=== PATIENT | female | born 1995 | race Caucasian/White ===

== ENCOUNTER 2020-11-06 15:03 | Emergency (ER) | payer SELFPAY ==
--- NOTE | 2020-11-06 15:23 | NUR ---
First contact with pt. Pt reports she is A2, and is approximately 11weeks . Reports she began having low abd cramps x4 days ago. Pt reports "I passed the baby 30 minutes ago." Pt denies cramping currently, denies dysuria. Pt placed in gown, positioned for comfort in bed, all safety measures observed.
[2020-11-06] MEDS ORDERED: PREN1TAB98 PO (15:25)
--- NOTE | 2020-11-06 15:32 | NUR ---
Continuous oxygen and BP Monitors applied, all safety measures observed, pt declines warm blanket offered.
[2020-11-06 15:48] LABS: BASOPHILS % (AUTO) 0 % (0-1); EOSINOPHILS % (AUTO) 1 % (1-7); LYMPHOCYTES % (AUTO) 9 % (22-44); MEAN CORPUSCULAR HEMOGLOBIN 31.6 pg (27.0-34.8); MEAN CORPUSCULAR HGB CONC 34.2 g/dL (32.4-35.8); MEAN PLATELET VOLUME 8.3 fL (7.4-10.4); MONOCYTES % (AUTO) 4 % (2-9); NEUTROPHILS % (AUTO) 86 % (42-75); PLATELET COUNT 308 x10^3/uL (130-400); RED BLOOD COUNT 4.38 x10^6/uL (3.82-5.3); RED CELL DISTRIBUTION WIDTH 12.4 % (9.6-15.2)
--- NOTE | 2020-11-06 15:56 | NUR ---
Report to Jacinda ROBERT.
[2020-11-06 15:58] LABS: ALBUMIN 3.2 g/dL (3.4-5.0); ANION GAP 8 mmol/L (5-15); CALCIUM 8.6 mg/dL (8.5-10.1); CHLORIDE 106 mmol/L (98-107); CREATININE 0.58 mg/dL (0.55-1.02)
--- NOTE | 2020-11-06 15:59 | NUR ---
ASSUMING CARE OF PT AFTER REPORT FROM MIRNA
--- NOTE | 2020-11-06 16:26 | NUR ---
PT RESTING IN BED WITH FAMILY AT BEDSIDE. AWAITING US.
--- NOTE | 2020-11-06 16:40 | NUR ---
PT TO US.
--- NOTE | 2020-11-06 17:19 | NUR ---
pt back from us. [email or web address]
[2020-11-06 17:35] LABS: MICROSCOPIC INDICATED
[2020-11-06 18:11] VITALS: BP 122/76
--- NOTE | 2020-11-06 18:21 | NUR ---
Patient given discharge instructions and they have confirmed that they understand the instructions. Patient ambulatory with steady gait. NAD, all questions answered appropriately, denies additional needs at this time. No personal belongings left in room after discharge.
== END 2020-11-06 18:22 | disposition home or self-care (01) ==
LOC: ED 18:16
DX: O03.9 Complete or unspecified spontaneous abortion without complication (principal)
CPT/HCPCS: 36415; 76801; 80048; 81001; 82040; 84702; 85025; 86901; 87086; 99285